=== PATIENT | male | born 1955 | race Caucasian/White ===

== ENCOUNTER 2018-01-11 06:50 | Day surgery (SDC) | payer MEDICARE ==
[2018-01-10 11:54] LABS: HEMATOCRIT 38.7 % (42.0-54.0); HEMOGLOBIN 12.8 g/dL (13.5-17.5); MCH 32.8 pg (26.0-34.0); MCHC 33.1 g/dL (31.0-37.0); MCV 99.2 fL (80.0-100.0); RBC 3.9 10x6/uL (4.20-6.10); RDW 14.6 % (11.5-14.5); WBC 4.9 10x3/uL (4.8-10.8)
[2018-01-10 12:02] LABS: CALC OSMOLALITY 277 mosm/kg (275-300); CALCIUM 8.8 mg/dL (8.5-10.1); CARBON DIOXIDE 24.5 mmol/L (21.0-32.0); CHLORIDE - SERUM 106 mmol/L (98-107); GLUCOSE 111 mg/dL (74-106); POTASSIUM - SERUM 4.5 mmol/L (3.5-5.1); SODIUM 139 mmol/L (136-145); UREA NITROGEN 11 mg/dL (7-18); eGFR NON AFRICAN AMERICAN 81 mL/min (90-120)
[~2018-01-11] VITALS: Ht 175.3 cm; Wt 93.9 kg
[2018-01-11] MEDS ORDERED: ULTRAM50 MG PO (08:03)
[2018-01-11] MEDS ORDERED: HYDROCODONE-APA1 TAB PO (08:03)
[2018-01-11] MEDS ORDERED: FOLIC ACID1 MG PO (08:04)
[2018-01-11] MEDS ORDERED: METHOTREXATE2.5 MG PO (08:05)
[2018-01-11] MEDS ORDERED: XELJANZ5 MG PO (08:06)
[2018-01-11] MEDS ORDERED: LISINOPRIL10 MG PO (08:06)
[2018-01-11] MEDS ORDERED: NEURONTIN 300300 MG PO (08:07)
[2018-01-11] MEDS ORDERED: PREDNISONE5 MG PO (08:07)
[2018-01-11] MEDS ORDERED: PRAVACHOL40 MG PO (08:07)
[2018-01-11] MEDS ORDERED: ZETIA10 MG PO (08:09)
[2018-01-11] MEDS ORDERED: OS-CAL500 MG (08:10)
[2018-01-11] MEDS ORDERED: ADVAIR 100/501 DISK INH (08:11)
[2018-01-11] MEDS ORDERED: VENTOLIN HFA18 GM INH (08:11)
[2018-01-11] MEDS ORDERED: ANORO ELLIPTA1 EACH INH (08:12)
[2018-01-11 08:22] VITALS: Ht 175.3 cm; Wt 93.9 kg
[2018-01-11] MEDS ORDERED: OXYCODONE HCL5 MG PO (09:11)
[2018-01-11] MEDS ORDERED: LASIX20 MG PO (09:14)
[2018-01-11] MEDS ORDERED: FLOMAX0.4 MG PO (09:14)
== END 2018-01-11 13:25 | disposition home or self-care (01) ==
LOC: D.OPS 06:50 → D.PAN 09:30 → D.OPS 09:30
PROVIDERS: Anesthesiology
DX: K40.90 Unilateral inguinal hernia, without obstruction or gangrene, not specified as recurrent (principal); I10 Essential (primary) hypertension; K21.9 Gastro-esophageal reflux disease without esophagitis; J44.9 Chronic obstructive pulmonary disease, unspecified; M06.9 Rheumatoid arthritis, unspecified; Z01.812 Encounter for preprocedural laboratory examination